=== PATIENT | male | born 2000 | race Asian ===

== ENCOUNTER 2023-12-23 22:33 | Emergency (ER) | payer BC ==
[2023-12-23] MEDS ORDERED: Acetaminophen 500 MG TAB ONE (23:19)
== END 2023-12-23 23:55 | disposition home or self-care (01) ==
LOC: CSHERS 22:33
DX: S80.01XA Contusion of right knee, initial encounter (principal); W51.XXXA Accidental striking against or bumped into by another person, initial encounter; Y93.79 Activity, other specified sports and athletics
CPT/HCPCS: 99283

== ENCOUNTER 2023-12-31 13:52 | Emergency (ER) | payer BC | END 2023-12-31 16:48 | disposition home or self-care (01) | LOC: CSHERS 13:52 | DX: S80.11XA Contusion of right lower leg, initial encounter (principal) ==